=== PATIENT | male | born 1980 | race Caucasian/White ===

== ENCOUNTER 2024-01-18 17:28 | Emergency (ER) | payer SELFPAY ==
[~2024-01-18] VITALS: Ht 188 cm; Wt 120.5 kg
[2024-01-18 17:38] VITALS: TEMP 98.1
[2024-01-18 18:59] VITALS: BP 140/72; PULSE 75; RESP 16
== END 2024-01-18 20:21 | disposition home or self-care (01) ==
LOC: EMS 17:29 → EDBD 17:29 → EMS 20:21
DX: T17.808A Unspecified foreign body in other parts of respiratory tract causing other injury, initial encounter (principal); F10.90 Alcohol use, unspecified, uncomplicated; Z87.891 Personal history of nicotine dependence; W45.8XXA Other foreign body or object entering through skin, initial encounter; Y93.89 Activity, other specified; Y92.89 Other specified places as the place of occurrence of the external cause; Y99.8 Other external cause status; Y90.9 Presence of alcohol in blood, level not specified
CPT/HCPCS: 71045; 99283